=== PATIENT | female | born 1970 | race Caucasian/White ===

== ENCOUNTER 2022-04-24 15:16 | Emergency (ER) | payer OTHER ==
[~2022-04-24] VITALS: Ht 157.5 cm; Wt 69.1 kg
[2022-04-24 20:00] VITALS: BP 135/74
== END 2022-04-24 20:48 | disposition home or self-care (01) ==
LOC: EMS 15:16
DX: M25.561 Pain in right knee (principal); Z98.890 Other specified postprocedural states
CPT/HCPCS: 99283